=== PATIENT | male | born 1995 | race Caucasian/White ===

== ENCOUNTER 2017-04-20 14:49 | Emergency (ER) | payer BC ==
--- NOTE | 2017-04-20 15:36 | UC ---
Dizzy HPI HPI Summary: This is an otherwise healthy 21 yo male who presents with c/o dizziness and blurred vision. Symptoms have been intermittent today. He drove from [place] to visit a friend in [place] on his way to school for the semester. He reports that he was recently treated for epididymitis with 20d of Cipro that he finished ~2 weeks ago. He reports that he is mildly anxious. No c/o ST, GEE, cough, congestion, n/v, abd pain. No c/o diarrhea, rash. No urinary symptoms. No testicular pain or penile dc. The dizziness is described as lightheadedness and the vision changes include his vision being a little "wavy" . He has eaten today, but hydration has been poor. - History Of Current Complaint Chief Complaint: UCDizziness Stated Complaint: DIZZY,BLURRED VISION - Allergies/Home Medications Allergies/Adverse Reactions: Allergies Allergy/AdvReac Type Severity Reaction Status Date / Time Erythromycin Allergy Rash And Verified 04/20/17 15:07 Itching Home Medications: Home Medications NK [No Home Medications Reported] 04/20/17 [History Confirmed 04/20/17] PMH/Surg Hx/FS Hx/Imm Hx Previously Healthy: Yes - Surgical History Surgical History: None - Family History Known Family History: Positive: None - Social History Alcohol Use: Rare Substance Use Type: None Smoking Status (MU): Never Smoked Tobacco Review of Systems Constitutional: Negative Skin: Negative Eyes: Blurred Vision ENT: Negative Respiratory: Negative Cardiovascular: Negative Gastrointestinal: Negative Genitourinary: Negative Motor: Negative Neurovascular: Negative Musculoskeletal: Negative Neurological: Other - dizziness Psychological: Negative All Other Systems Reviewed And Are Negative: Yes Physical Exam Triage Information Reviewed: Yes Appearance: Well-Appearing Vital Signs: Initial Vital Signs Temp 100.6 F 04/20/17 15:00 Pulse 97 04/20/17 15:00 Resp 18 04/20/17 15:00 BP 155/55 04/20/17 15:00 Pulse Ox 100 04/20/17 15:00 Vital Signs Reviewed: Yes ENT: Positive: Normal ENT inspection Neck: Positive: Supple, Nontender, No Lymphadenopathy Respiratory: Positive: Lungs clear, Normal breath sounds. Negative: Crackles, Rhonchi, Stridor Cardiovascular: Positive: RRR, No Murmur Abdomen Description: Positive: Nontender, Soft. Negative: CVA Tenderness (R), CVA Tenderness (L) Musculoskeletal: Positive: Strength Intact Neurological Exam: Normal Neurological: Positive: Alert Psychological: Positive: Normal Response To Family Skin Exam: Normal Skin: Negative: rashes Diagnostics - Laboratory Diagnostic Studies Completed/Ordered: Orthostatic vitals signs - neg Re-Evaluation - Re-Evaluation First Eval Re-Evaluation Time: 16:15 Change: Improved Comment: Improved after hydrating with 1500 ml water taken oral Dizzy Course/Dx - Course Course Of Treatment: This is an otherwise healthy young male who presents with c /o dizziness and vision changes. Noted to have a fever. Exam benign. Orthostatics negative. Assume symptoms are due to acute febrile illness which is likely viral in origin. Recommend treat fever prn with APAP and ibuprofen, follow up as needed with school clinic once he arrives at school. - Differential Dx/Diagnosis Differential Diagnosis/HQI/PQRI: Dysrhythmia, Meniere's Disease, Transient Ischemic Attack Provider Diagnoses: 1. Dizziness. 2. Febrile illness Discharge - Discharge Plan Condition: Stable Disposition: HOME Patient Education Materials: Viral Syndrome (ED) Additional Instructions: Instructions: 1. Treat fever with tylenol and/or ibuprofen 2. Hydrate well 3. Follow up with student health at school if fevers persist
[2017-04-20 15:44] VITALS: BP 125/66
== END 2017-04-20 16:24 | disposition home or self-care (01) ==
LOC: UCEAST 14:49
DX: R42 Dizziness and giddiness (principal); R50.9 Fever, unspecified; Z88.3 Allergy status to other anti-infective agents
CPT/HCPCS: 99201; G0463